=== PATIENT | male | born 1990 | race Caucasian/White ===

== ENCOUNTER 2019-04-30 13:12 | Emergency (ER) | payer MEDICAID, OTHER ==
[~2019-04-30] VITALS: Ht 185.4 cm; Wt 78.5 kg
[~2019-04-30 13:12] MED LIST: [UNRECOGNIZED DRUG - SUPPLY]
[2019-04-30 13:19] VITALS: BP 127/86
--- NOTE | 2019-04-30 13:30 | NUR ---
PT AMBULATED TO BED 8 WITH STEADY GAIT.
--- NOTE | 2019-04-30 13:33 | NUR ---
PT PRESENTS TO ER FOR MEDICATION REFILL. PT REQUESTING 200 MG/ML OF TESTOSTERONE. PT SITTING IN CHAIR. VSS. MEDHX: TESTICULAR CANCER, RENAL DISEASE ALLERGIES: DENIES
--- NOTE | 2019-04-30 13:43 | NUR ---
Dr. Bui at bedside
--- NOTE | 2019-04-30 14:16 | NUR ---
Patient discharged with v/s stable. Written and verbal after care instructions given and explained. Patient alert, oriented and verbalized understanding of instructions. Ambulatory with steady gait. All questions addressed prior to discharge. ID band removed. Patient advised to follow up with PMD. Rx of TESTOSTERONE given. Patient educated on indication of medication including possible reaction and side effects. Opportunity to ask questions provided and answered.
[2019-04-30 14:17] VITALS: BP 127/86
== END 2019-04-30 14:16 | disposition home or self-care (01) ==
LOC: MED 13:12
DX: Z85.47 Personal history of malignant neoplasm of testis (principal); I10 Essential (primary) hypertension; F17.200 Nicotine dependence, unspecified, uncomplicated; Z76.0 Encounter for issue of repeat prescription; Z98.890 Other specified postprocedural states; Z79.899 Other long term (current) drug therapy; Z87.448 Personal history of other diseases of urinary system
CPT/HCPCS: 99283

== ENCOUNTER 2019-08-27 17:48 | Emergency (ER) | payer MEDICAID ==
[~2019-08-27] VITALS: Ht 185.4 cm; Wt 81.6 kg
[2019-08-27 18:02] VITALS: BP 117/95
--- NOTE | 2019-08-27 18:29 | NUR ---
29 Y/O M C/C MEDICATION REFILL - TESTOSTERONE. PER PT NKA. HX TESTICULAR CA, KIDNEY FAILURE. RX TESTOSTERONE. NO N/V/D. A/OX4. NO OTHER S/S.
[2019-08-27 18:42] VITALS: BP 117/95
== END 2019-08-27 18:42 | disposition home or self-care (01) ==
LOC: MED 17:48
DX: Z76.0 Encounter for issue of repeat prescription (principal); N28.9 Disorder of kidney and ureter, unspecified; Z90.79 Acquired absence of other genital organ(s); Z98.890 Other specified postprocedural states; Z79.899 Other long term (current) drug therapy
CPT/HCPCS: 99281; 99283